=== PATIENT | male | born 1950 | race Caucasian/White ===

== ENCOUNTER 2019-04-12 21:59 | Inpatient (IN) | payer MEDICARE ==
[2019-04-12] MEDS ORDERED: Lorazepam 2 MG/ML VIAL ONE (22:31)
[2019-04-12] MEDS ORDERED: Aspirin 300 MG Suppository ONE (23:37)
[2019-04-13] MEDS ORDERED: Ondansetron ODT 4 MG TAB PO PRN (01:25)
[2019-04-13] MEDS ORDERED: Acetaminophen 325 MG TAB PO PRN (01:25)
[2019-04-13] MEDS ORDERED: Bisacodyl 5 MG TAB PO PRN (01:25)
[2019-04-13] MEDS ORDERED: Dextrose 5% in Water 1,000 ML IV PRN (03:16)
[2019-04-13] MEDS ORDERED: Dextrose 50% Abboject 50 ML SYRINGE SLOW IVP PRN (03:16)
--- NOTE | 2019-04-13 05:38 | PDOC.HHP ---
Hospitalist HPI - History of Present Illness aphasia/unresponsive History of Present Illness: This is a 68 year old male with past medical history of stroke in the past , diabetes, subarachnoid hemorrhage who had presented to the emergency room after being found unresponsive. Per chart review, patient's son had spoken to the patient on the phone at 3:00 pm. When the son came home he found the patient laying on the ground and was unable to stand, move his right side or speak. Patient' son waited until his mother arrived home with a car to bring the patient to the ER at which point patient was out of the window for TPA. Patient had a CT head at outside hospital that was negative for an acute stroke. NIH score was 35 so patient was transferred here. Patient is currently non-verbal so am unable to obtain further history. ED Course: The patient presented with a blood pressure of 171/97 which increased to 191/ 100. He was given aspirin 300 mg rectally. Patient was also agitated trying to get out of bed and was given one dose of ativan 0.5 mg in the ER. Labs showed a WBC of 16, creatinine of 1.33. Hospitalist ROS - Review of Systems ROS unobtainable: due to mental status Hospitalist History - Past Medical History Cardiac: reports: CAD STUNTMAN: reports: Other (subarachnoid hemorrhage in the past. 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) Other Medical History: Diabetes typ eII - Past Surgical History Other Surgical History: CABG - Family History Other Family History: Unknown - Social History Smoking Status: Unknown if ever smoked Alcohol: reports: None Living Situation: Alone - Exam General Appearance: NAD, awake alert Eye: PERRL, anicteric sclera ENT: normocephalic atraumatic, no oropharyngeal lesions Neck: no JVD Heart: RRR, no murmur, no gallops, no rubs Respiratory: CTAB, no wheezes, no rales, no ronchi Gastrointestinal: soft, non-tender, non-distended, normal bowel sounds Extremities: no cyanosis, no clubbing, no edema Skin: normal turgor, no lesions, no rashes Neurological: cranial nerve grossly intact Neurological - other findings: right sided hemineglect. Aphasic. Moves left side spontaneously Musculoskeletal: normal tone, normal strength, no muscle wasting Psychiatric - other findings: aphasic Hospitalist H&P A/P - Plan Plan: This is a 68 year old male with past medical history of CAD, prior stroke, subarachnoid hemorrhage, TBI in the past, who presented to the ER after being found unresponsive #Acute CVA with right sided weakness/neglect #Uncontrolled hypertension #Acute encephalopathy likely from stroke - CT head was negative. Patient with NIH scale of 35. S/p aspirin 300 mg rectally -neurology consult. Ordered carotid dopplers due to elevated creatinine - MRI brain in the morning. Recheck hemoglobin A1C, TSH - 2DECHO - PT/OT/speech consult - BP 191/101, will keep on the higher side for now, order amlodipine for afternoon #Acute Kidney Injury - creatinine 1.3, baseline was 1.16 - will order UA #Leukocytosis - WBC 16, likely reactive from stroke - check UA - chest xray #Type II diabetes - insulin sliding scale - hold outpatient meds - fingersticks q6 hours - HbA1C 8.1 in 07/2018 DVT prophhylaxis: hold due to high BP Code status: full code for now, unknown
[2019-04-13 05:59] VITALS: BMI 31.1
[2019-04-13 06:01] LABS: #Lymphocytes 0.6 thou/uL (1.20-3.40); #Monocytes 0.6 thou/uL (0.11-0.59); #Neutrophils 16.4 thou/uL (1.40-6.50); %Basophils 0.1 % (0.0-1.0); %Eosinophils 0.1 % (0.0-10.0); %Lymphocytes 3.4 % (21.0-51.0); %Monocytes 3.6 % (0.0-10.0); %Neutrophils 92.7 % (42.0-75.0); Mean Corpuscular HGB CONC 32.2 g/dL (32.0-36.0); Mean Corpuscular Hemoglobin 30.2 pg (27.0-31.0); Mean Corpuscular Volume 93.8 fL (78.0-98.0); Mean Platelet Volume 7.6 fL (7.4-10.4); Platelet Count 313 thou/uL (130-400); RBC Distribution Width 12.2 % (11.5-14.5); Red Blood Cell (RBC) Count 5.28 mill/uL (4.70-6.10); White Blood Cell (WBC) Count 17.7 thou/uL (4.8-10.8)
[2019-04-13 06:20] LABS: Anion Gap 13 mmol/L (10-20); BUN (Urea Nitrogen) 19 mg/dL (8.4-25.7); Calc. Creatinine Clearance 96 mL/min (70-130); Calcium 9.5 mg/dL (7.8-10.44); Carbon Dioxide 24 mmol/L (23-31); Chloride 101 mmol/L (98-107); Estimated GFR-MDRD 69; Glucose 289 mg/dL (80-115); Hemoglobin A1c 10.3 % (4.0-6.0); Potassium 4.3 mmol/L (3.5-5.1); Sodium 134 mmol/L (136-145)
[2019-04-13 06:29] LABS: Bacteria/HPF None Seen HPF (None Seen); Bilirubin Negative (Negative); Blood, Urine Negative (Negative); Clarity Clear (Clear); Glucose, Urine (Dipstick) Greater than 1000 mg/dL (Negative); Leukocyte Negative Leu/uL (Negative); Nitrite Negative (Negative); Protein, Urine (Dipstick) 10 mg/dL (Neg-Trace); RBC/HPF 0-3 HPF (0-3); Squamous Epithelial 0-3 HPF (0-3); Urobilinogen Normal mg/dL (Less than 2); WBC/HPF 0-3 HPF (0-3)
[2019-04-13 06:44] LABS: Urine Culture Reflex No No
[2019-04-13] MEDS ORDERED: Prevnar 13-Val Conj/PF 0.5 ML SYRINGE IM ONE (06:45)
[2019-04-13] MEDS ORDERED: FLU VACC TS2019-20(65YR UP)/PF 180 MCG/0.5 ML SYRINGE IM ONE (06:45)
[2019-04-13 06:47] LABS: Free T4 (Free Thyroxine) 0.87 ng/dL (0.70-1.48); Thyroid Stimulating Hormone 0.7051 uIU/mL (0.35-4.94)
[2019-04-13] MEDS ORDERED: Lorazepam 2 MG/ML VIAL SLOW IVP SCH (07:00)
[2019-04-13] MEDS: HumaLOG 300 UNITS/3 ML VIAL SC PRN ×2 (07:05→12:19)
--- NOTE | 2019-04-13 07:49 | ULT ---
BILATERAL CAROTID DUPLEX ULTRASOUND: HISTORY: Aphasia. Right-sided neglect TECHNIQUE: Grayscale, color-flow and spectral Doppler ultrasound imaging of the extracranial carotid artery syst ems was performed bilaterally. FINDINGS: There is occlusion of the right internal carotid artery proximally. Plaque formation is also seen on the left. The peak systolic velocity in the left ICA measures 309 cm/s with an end-diastolic velocity of 70 cm/s and a systolic ratio of 3.33. Flow in both vertebral arteries remains antegrade. IMPRESSION: 1. Occlusion of the right proximal ICA. 2. Severe (greater than 70%) stenosis of the left ICA
--- NOTE | 2019-04-13 07:51 | RAD ---
Exam: Chest one view HISTORY:Elevated white blood cell count. Comparison: 120 12,004 FINDINGS: Cardiac silhouette:Enlarged cardiac silhouette. There are sternotomy wires. Aorta: Unremarkable Pulmonary vessels: Normal Costophrenic angles: Clear LUNGS: No masses or consolidation. Chronic lung parenchymal changes are noted. Pneumothorax: None Osseous abnormalities: Degenerative changes in the left shoulder IMPRESSION: No acute cardiopulmonary process.
--- NOTE | 2019-04-13 08:41 | MRI ---
BRAIN MRI WITHOUT CONTRAST: HISTORY: Right-sided neglect. Aphasia. Altered mental status. COMPARISON: 06/30/2003. FINDINGS: Calvarial marrow signal intensity: Appropriate T1 signal. Gradient echo sequence: Hemosiderin deposition due to remote insult along the right deep hong matter structures and right periventricular white matter. Brain parenchyma: Encephalomalacia and gliosis due to remote right cerebral insult. Cortical hong-white matter differentiation: Loss of hong-white matter differentiation, scattered thro ughout the left frontal, temporal and parietal cortex. There is associated T2, FLAIR signal hyperintensity as well as restricted diffusion. Multifocal left MCA and ZENON distribution infarct is f avored. Restricted diffusion: Absent Central arterial flow void involving the right internal carotid artery. There is appropriate flow related signal in the intracranial left internal carotid artery. There is decreased but present flow related signal in the right M1 segment. White matter signal intensities:Additional T2 and FLAIR white matter hyperintensities suggesting physical medicine physician penelope small vessel ischemic change. Sinuses: Adequate aeration of the paranasal sinuses and mastoid air cells. IMPRESSION: 1. Multifocal areas of restricted diffusion of left cerebrum compatible with ZENON and MCA distribution infarct. 2. 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 3. Chronic changes involving the right cerebrum due to remote right MCA distribution insult. Transcribed Date/Time: 04/13/2019 9:07 AM
--- NOTE | 2019-04-13 09:52 | PDOC.HOSPP ---
- Subjective Encounter Date: 04/13/19 non-verbal - Objective Vital Signs & Weight: Vital Signs (12 hours) Temp Pulse Resp BP Pulse Ox 04/13/19 07:30 98.4 F 105 H 20 148/84 H 93 L 04/13/19 03:30 97.8 F 102 H 18 146/71 H 94 L 04/13/19 00:56 97.7 F 97 20 169/77 H 95 Weight Weight 230 lb Result Diagrams: 04/13/19 05:51 04/13/19 05:51 Additional Labs: Accuchecks 04/13/19 07:01 POC Glucose 254 H Hospitalist ROS - Medication Medications: Active Medications Generic Name Dose Route Start Last Admin Trade Name Freq PRN Reason Stop Dose Admin Insulin Human Lispro 0 units 04/13/19 03:16 04/13/19 07:05 Humalog SC 4 units .MILD SLIDING SCALE PRN Administration Mild Correctional Scale - Exam General Appearance: NAD Heart: RRR, no murmur, no gallops, no rubs, normal peripheral pulses Respiratory: CTAB, no wheezes, no rales, no ronchi, normal chest expansion, no tachypnea, normal percussion Gastrointestinal: soft, non-distended, normal bowel sounds Extremities: no cyanosis, no clubbing, no edema Skin: normal turgor Musculoskeletal - other findings: Moves right foot spontaneously. No RUE movement noted. Psychiatric: somnolent Psychiatric - other findings: Encephalopathic
--- NOTE | 2019-04-13 09:54 | PDOC.HOSPP ---
- Subjective Encounter Date: 04/13/19 non-verbal - Objective Vital Signs & Weight: Vital Signs (12 hours) Temp Pulse Resp BP Pulse Ox 04/13/19 07:30 98.4 F 105 H 20 148/84 H 93 L 04/13/19 03:30 97.8 F 102 H 18 146/71 H 94 L 04/13/19 00:56 97.7 F 97 20 169/77 H 95 Weight Weight 230 lb Result Diagrams: 04/13/19 05:51 04/13/19 05:51 Additional Labs: Accuchecks 04/13/19 07:01 POC Glucose 254 H Hospitalist ROS - Medication Medications: Active Medications Generic Name Dose Route Start Last Admin Trade Name Freq PRN Reason Stop Dose Admin Insulin Human Lispro 0 units 04/13/19 03:16 04/13/19 07:05 Humalog SC 4 units .MILD SLIDING SCALE PRN Administration Mild Correctional Scale - Exam General Appearance: NAD Heart: RRR, no murmur, no gallops, no rubs, normal peripheral pulses Respiratory: CTAB, no wheezes, no rales, no ronchi, normal chest expansion, no tachypnea, normal percussion Gastrointestinal: soft, non-distended, normal bowel sounds Extremities: no cyanosis, no clubbing, no edema Skin: normal turgor Neurological - other findings: Spont movement RLE. No mvment noted RLE. Psychiatric: somnolent Psychiatric - other findings: Encephalopathic Hosp A/P (1) CVA (cerebral vascular accident) Code(s): I63.9 - CEREBRAL INFARCTION, UNSPECIFIED Status: Acute (2) Acute metabolic encephalopathy Code(s): G93.41 - METABOLIC ENCEPHALOPATHY Status: Acute (3) CAD (coronary artery disease) Code(s): I25.10 - ATHSCL HEART DISEASE OF [place] CORONARY ARTERY W/O ANG PCTRS Status: Acute (4) HTN (hypertension) Code(s): I10 - ESSENTIAL (PRIMARY) HYPERTENSION Status: Acute (5) DONNA (acute kidney injury) Code(s): N17.9 - ACUTE KIDNEY FAILURE, UNSPECIFIED Status: Acute (6) Diabetes mellitus Code(s): E11.9 - TYPE 2 DIABETES MELLITUS WITHOUT COMPLICATIONS Status: Acute (7) Leukocytosis Code(s): D72.829 - ELEVATED WHITE BLOOD CELL COUNT, UNSPECIFIED Status: Acute (8) Carotid stenosis Code(s): I65.29 - OCCLUSION AND STENOSIS OF UNSPECIFIED CAROTID ARTERY Status : Acute - Plan CVA: Several areas of infarct in the left ZENON and MCA distributions. Consistent with embolic cva. Echo pending. Neuro consult. PT/OT/DIRECTOR OF MARKET INTELLIGENCE. Rectal ASA. CAD: Stable. Unable to take po meds. DM: Accuchecks, SSI. Encephalopathy: Secondary to CVA. Leukocytosis: Suspect demargination due to CVA. Continue to monitor. Carotid stenosis. CTA. Possibly CV surg consult.
[2019-04-13] MEDS ORDERED: Aspirin 300 MG Suppository PR SCH (10:00)
[2019-04-13] MEDS ORDERED: Iopamidol-370 76% 500 ML 1 ML ONE (13:59)
[2019-04-13] MEDS: Amlodipine 5 MG TAB PO SCH (14:15)
--- NOTE | 2019-04-13 21:33 | CT ---
CTA OF THE NECK WITH IV CONTRAST AND 3-D REFORMATTED IMAGING. INDICATION: History of stroke and right internal carotid artery occlusion COMPARISON: MR the brain dated 04/13/[address] the brain dated 04/12/2019. Carotid ultrasound from 01/2020 was also reviewed. FINDINGS: Right CCA: Patent. Right ICA: Completely occluded from the level of proximal right ICA through the level of the supracl inoid right ICA. Right Subclavian: Patent. Right Vertebral Artery: Patent. Left CCA: Patent. Left ICA: There is high-grade stenosis, 80-90% luminal caliber narrowing, involving the proximal lef t ICA. The mid to distal left ICA cervical segments are patent. The petrous, precavernous, cavernous and visualized supraclinoid left ICA segment is patent. Left Subclavian: Patent. Left Vertebral Artery: Diminutive with moderate to severe narrowing at its origin. There is complete occlusion of the left vertebral artery just proximal to the basilar artery. Aerodigestive tract: Clear. Parotids/Submandibular/Thyroid glands: Normal. Lymph nodes: No pathologically enlarged lymph nodes. Lung Apices: Clear. Bones: No acute osseous abnormality. There is scattered degenerative and osteoarthritic change prese nt. Incidentals: None. IMPRESSION: 1. High-grade stenosis, 80-90% luminal caliber narrowing, involving the proximal left ICA. 2. Complete occlusion of the right ICA 3. Diminutive left vertebral artery with complete occlusion of the intracranial left vertebral artery , just proximal to its basilar artery confluence.
[2019-04-13] MEDS: Sodium Chloride 0.45% 1,000 ML IV SCH (21:43)
--- NOTE | 2019-04-13 22:14 | CON ---
DATE OF CONSULTATION: 04/13/2019 CONSULTING PHYSICIAN: Hospitalist Service. IMPRESSION: 1. Left MCA stroke, likely secondary to thromboembolic event. 2. 70% left carotid stenosis with symptomatic event. 3. Prior right MCA stroke secondary to right internal carotid occlusion. 4. Diabetes. 5. Subarachnoid hemorrhage. 6. Coronary artery disease. 7. Noncompliance. PLAN: 1. Probable need for PEG tube placement to establish medication pathway. 2. Probable need for carotid endarterectomy in the future. 3. Continue aspirin, Plavix, and statin once GI pathway is established. HISTORY OF PRESENT ILLNESS: Mr. Luis is a 68-year-old gentleman, who lives alone. He has a son, who reports that he has been noncompliant with his medications. Has past history of stroke with some residual left upper extremity weakness. He got around the house independently. Otherwise, he has a distant history of subarachnoid hemorrhage. He presented with aphasia and right-sided weakness. His MRI confirmed areas of ischemia in both the left anterior cerebral and middle cerebral artery territories. His CTA showed 70% left carotid narrowing. His lab work was unremarkable other than blood glucoses in the 200s. PAST HISTORY: As listed above. ALLERGIES: PENICILLIN. SOCIAL HISTORY: No tobacco. FAMILY HISTORY: Noncontributory. REVIEW OF SYSTEMS: Not obtainable due to his aphasia. PHYSICAL EXAMINATION: GENERAL: He is a well-nourished elderly man, lying in bed, in no distress. VITAL SIGNS: Have been stable. He is afebrile. HEENT: Pupils are equal. Conjunctivae are clear. His eyes are deviated to the left. Cranium, normocephalic and atraumatic. NECK: Supple. No lymphadenopathy. EXTREMITIES: No cyanosis, clubbing, or edema. NEUROLOGIC: He appears to be awake. He was totally mute. He does not follow any commands. His face appeared slightly flattened on the right. He had some tone in the right arm, but no purposeful movement. He had some withdrawal response in the right leg to stimulation. Plantar responses were upgoing bilaterally. No other abnormal movements were seen. IMAGING: Reviewed. EKG shows normal sinus rhythm. SUMMARY: This is an unfortunate 68-year-old gentleman with bilateral infarcts with carotid disease. He will likely need a PEG tube place given the density of his damage. His son understands the gravity of situation. There is little hope that he will return to a functional level. The decision as to whether endarterectomy is performed is somewhat tenuous given his prognosis. Further evaluation by GI for PEG tube placement will be needed. Vascular Surgery consult would be appropriate as well. Job ID: [id number]
[2019-04-14 05:09] LABS: Cardiac Risk 4.2 (Less than 4.5)
[2019-04-14] MEDS: HumaLOG 300 UNITS/3 ML VIAL SC PRN ×2 (06:14→12:34)
--- NOTE | 2019-04-14 09:02 | CON ---
DATE OF CONSULTATION: HISTORY OF PRESENT ILLNESS: This is a 68-year-old gentleman who was admitted to the hospital yesterday after being found down by his son. He was initially seen in the [place] ER where a CT scan of the brain was done and he was then transferred here. Workup here has included a carotid Doppler abnormal on the right and left and a CT angiogram showing a chronic right occlusion, which was actually documented in 2003 and a high-grade stenosis of about 80% to 90% in his left internal carotid artery. MRI shows old right cerebral infarct and fresh multifocal left cerebral infarct. Cardiac echo shows normal left ventricular function. PAST MEDICAL HISTORY: Obtained primarily from the records as the patient is noncommunicative. The patient has a history of hypertension and dyslipidemia. PAST SURGICAL HISTORY: As evidenced by physical exam, previous coronary artery bypass grafting or at least median sternotomy with cardiac surgery. SOCIAL HISTORY: The patient is documented to be a smoker. He does not take his medications at home. ALLERGIES: REPORTED TO PENICILLIN. PHYSICAL EXAMINATION: GENERAL: Gentleman looking younger than his stated age of 68 with a recorded height of 6 feet. Weight 230. The patient is lying in bed, head turned to the left. He is able to move his left arm and leg and no visible motion right side. NECK: No carotid bruits. LUNGS: Clear to auscultation anteriorly. CARDIAC: Mild resting tachycardia. No murmurs. EXTREMITIES: He has palpable pedal pulses in both legs and no peripheral edema. ASSESSMENT AND PLAN: The patient is status post sizable left middle cerebral and anterior cerebral artery infarct with aphasia, neglect, and right hemiparesis. He has documented old right carotid artery occlusion and now has a high-grade left internal carotid artery occlusion. He has a patent sizable right vertebral and a diminutive left vertebral. We will need to have further discussions with the family as to how aggressive they would like to be in this situation. The patient likely will need a PEG tube and senior living placement. Consideration can be given to a left carotid endarterectomy after discussion with the family, but this would probably not be done any time in the next 2 to 4 weeks. Job ID: [id number]
[2019-04-14] MEDS: Aspirin 300 MG Suppository PR SCH (09:32)
[2019-04-14] MEDS: Sodium Chloride 0.45% 1,000 ML IV SCH ×2 (10:15→21:36)
--- NOTE | 2019-04-14 11:05 | PDOC.HOSPP ---
- Subjective Encounter Date: 04/14/19 Encounter Time: 07:30 Subjective: Patient seen and examined. No overnight events - Objective Vital Signs & Weight: Vital Signs (12 hours) Temp Pulse Pulse Pulse Resp BP BP 04/14/19 08:44 82 80 143/101 H 155/77 H 04/14/19 07:27 98.2 F 93 16 04/14/19 03:40 98.7 F 79 16 04/13/19 23:20 99.1 F 91 16 BP Pulse Ox 04/14/19 08:44 04/14/19 07:27 95 04/14/19 03:40 153/73 H 94 L 04/13/19 23:20 145/84 H 94 L Weight Admit Weight 230 lb Weight 230 lb I&O: 04/13/19 04/14/19 04/15/19 06:59 06:59 06:59 Intake Total 850 Balance 850 Result Diagrams: 04/13/19 05:51 04/13/19 05:51 Additional Labs: Accuchecks 04/14/19 04/13/19 04/13/19 06:16 23:33 18:12 POC Glucose 206 H 195 H 188 H Radiology Reviewed by me: Yes EKG Reviewed by me: Yes Hospitalist ROS - Review of Systems ROS unobtainable: due to mental status - Medication Medications: Active Medications Generic Name Dose Route Start Last Admin Trade Name Freq PRN Reason Stop Dose Admin Amlodipine Besylate 5 mg 04/13/19 14:00 04/13/19 14:15 Norvasc PO Not Given 1400 SHEBA Aspirin 300 mg 04/14/19 09:00 04/14/19 09:32 Aspirin CA 300 mg DAILY SHEBA Administration Sodium Chloride 1,000 mls @ 75 mls/hr 04/13/19 21:45 04/14/19 10:15 1/2 Normal Saline IV 1,000 mls .[id number] SHEBA Administration Insulin Human Lispro 0 units 04/13/19 03:16 04/14/19 06:14 Humalog SC 3 units .MILD SLIDING SCALE PRN Administration Mild Correctional Scale Sodium Chloride 10 ml 04/14/19 09:00 04/14/19 09:30 Flush - Normal Saline IVF 10 ml Q12HR SHEBA Administration - Exam General Appearance: NAD, awake alert Eye: PERRL, anicteric sclera ENT: normocephalic atraumatic, no oropharyngeal lesions Neck: supple, symmetric, no JVD, no thyromegaly Heart: RRR, no murmur, no gallops, no rubs Respiratory: CTAB, no wheezes, no rales, no ronchi Gastrointestinal: soft, non-tender, non-distended Extremities: no cyanosis, no clubbing Skin: normal turgor, no lesions Neurological: hemiplegia, speech deficit Musculoskeletal: normal tone, normal strength Hosp A/P (1) CVA (cerebral vascular accident) Code(s): I63.9 - CEREBRAL INFARCTION, UNSPECIFIED Status: Acute Qualifiers: Precerebral and cerebral artery: anterior cerebral artery Laterality of affected vessel: left (2) Carotid stenosis Code(s): I65.29 - OCCLUSION AND STENOSIS OF UNSPECIFIED CAROTID ARTERY Status : Acute Qualifiers: Laterality: bilateral Qualified Code(s): I65.23 - Occlusion and stenosis of bilateral carotid arteries (3) Oropharyngeal dysphagia Code(s): R13.12 - DYSPHAGIA, OROPHARYNGEAL PHASE Status: Acute (4) Obesity (BMI 30.0-34.9) Code(s): E66.9 - OBESITY, UNSPECIFIED Status: Chronic (5) CAD (coronary artery disease) Code(s): I25.10 - ATHSCL HEART DISEASE OF [place] CORONARY ARTERY W/O ANG PCTRS Status: Chronic (6) Diabetes mellitus Code(s): E11.9 - TYPE 2 DIABETES MELLITUS WITHOUT COMPLICATIONS Status: Chronic Qualifiers: Diabetes mellitus type: type 2 Diabetes mellitus complication status: with circulatory complication (7) HTN (hypertension) Code(s): I10 - ESSENTIAL (PRIMARY) HYPERTENSION Status: Chronic Qualifiers: Hypertension type: essential hypertension Qualified Code(s): I10 - Essential (primary) hypertension - Plan old records reviewed/req, plan discussed w/ family, PT/OT, pediatric social worker, speech therapy, DVT proph w/lovenox 04/14/19 today speech to evaluate, he may need modified MBS if needed seems like he may need peg continue post stroke treatment with stroke team
[2019-04-14] MEDS ORDERED: Enoxaparin Sodium 40 MG/0.4 ML SYRINGE SC SCH (12:15)
[2019-04-14] MEDS: Amlodipine 5 MG TAB PO SCH (13:53)
[2019-04-15] MEDS ORDERED: Calcium Carbonate 500 MG ChewTAB PO PRN (07:42)
[2019-04-15] MEDS ORDERED: Ondansetron PF 4 MG/2 ML Vial IVP PRN (07:42)
[2019-04-15] MEDS ORDERED: Artificial Tears 18 DROP/0.9 ML EA EYE PRN (07:42)
[2019-04-15] MEDS ORDERED: Diabetic Tussin 200 MG/10 ML UDCUP PO PRN (07:42)
[2019-04-15] MEDS ORDERED: Acetaminophen 325 MG TAB PO PRN (07:42)
[2019-04-15] MEDS ORDERED: Bisacodyl 10 MG SUPP PR PRN (07:42)
[2019-04-15] MEDS ORDERED: Sodium Chloride 0.65% Nasal 44 ML BOT EA NARE PRN (07:42)
[2019-04-15] MEDS ORDERED: Loratadine 10 MG TAB PO PRN (07:42)
[2019-04-15] MEDS ORDERED: hydrALAZINE 20 MG/ML VIAL SLOW IVP PRN (07:42)
[2019-04-15] MEDS ORDERED: Acetaminophen 650 MG Suppository PR PRN (07:42)
[2019-04-15] MEDS ORDERED: Cepastat Lozenges 1 LOZ PO PRN (07:42)
[2019-04-15] MEDS: Enoxaparin Sodium 40 MG/0.4 ML SYRINGE SC SCH (09:10)
[2019-04-15] MEDS: Aspirin 300 MG Suppository PR SCH (09:10)
[2019-04-15] MEDS: Sodium Chloride 0.45% 1,000 ML IV SCH (12:36)
[2019-04-15] MEDS: HumaLOG 300 UNITS/3 ML VIAL SC PRN ×2 (12:44→18:40)
--- NOTE | 2019-04-15 13:05 | PDOC.HOSPP ---
- Subjective Encounter Date: 04/15/19 Encounter Time: 07:45 Subjective: Patient seen and examined. No new complaints. No overnight events - Objective Vital Signs & Weight: Vital Signs (12 hours) Temp Pulse Pulse Resp BP BP BP 04/15/19 11:50 98.5 F 74 17 146/79 H 04/15/19 09:06 04/15/19 08:40 67 111/68 141/77 H 04/15/19 08:00 98.4 F 78 18 135/71 04/15/19 04:00 98.6 F 80 16 146/71 H Pulse Ox 04/15/19 11:50 93 L 04/15/19 09:06 94 L 04/15/19 08:40 04/15/19 08:00 94 L 04/15/19 04:00 95 Weight Admit Weight 230 lb Weight 230 lb I&O: 04/14/19 04/15/19 04/16/19 06:59 06:59 06:59 Intake Total 850 1850 Balance 850 1850 Result Diagrams: 04/13/19 05:51 04/13/19 05:51 Additional Labs: Accuchecks 04/15/19 04/15/19 04/15/19 12:24 05:54 01:00 POC Glucose 168 H 151 H 160 H 04/14/19 18:47 POC Glucose 153 H Hospitalist ROS - Review of Systems ROS unobtainable: due to mental status - Medication Medications: Active Medications Generic Name Dose Route Start Last Admin Trade Name Freq PRN Reason Stop Dose Admin Amlodipine Besylate 5 mg 04/13/19 14:00 04/14/19 13:53 Norvasc PO 5 mg 1400 SHEBA Administration Aspirin 300 mg 04/14/19 09:00 04/15/19 09:10 Aspirin ID 300 mg DAILY SHEBA Administration Bisacodyl 10 mg 04/13/19 01:25 04/15/19 09:10 Dulcolax PO 10 mg DAILYPRN PRN Administration Constipation Enoxaparin Sodium 40 mg 04/15/19 09:00 04/15/19 09:10 Lovenox SC 40 mg 0900 SHEBA Administration Sodium Chloride 1,000 mls @ 75 mls/hr 04/13/19 21:45 04/15/19 12:36 1/2 Normal Saline IV 1,000 mls .[id number] SHEBA Administration Insulin Human Lispro 0 units 04/13/19 03:16 04/15/19 12:44 Humalog SC 2 units .MILD SLIDING SCALE PRN Administration Mild Correctional Scale Sodium Chloride 10 ml 04/14/19 09:00 04/15/19 09:11 Flush - Normal Saline IVF 10 ml Q12HR SHEBA Administration - Exam General Appearance: NAD, awake alert Eye: PERRL, anicteric sclera ENT: normocephalic atraumatic, no oropharyngeal lesions Neck: supple, symmetric, no JVD Heart: RRR, no murmur, no gallops, no rubs Respiratory: CTAB, no wheezes, no rales, no ronchi Gastrointestinal: soft, non-tender, non-distended, normal bowel sounds Extremities: no cyanosis, no clubbing, no edema Skin: normal turgor, no lesions Neurological: hemiplegia, speech deficit Musculoskeletal: normal tone, normal strength Psychiatric: normal affect, normal behavior Hosp A/P (1) CVA (cerebral vascular accident) Code(s): I63.9 - CEREBRAL INFARCTION, UNSPECIFIED Status: Acute Qualifiers: Precerebral and cerebral artery: anterior cerebral artery Laterality of affected vessel: left (2) Carotid stenosis Code(s): I65.29 - OCCLUSION AND STENOSIS OF UNSPECIFIED CAROTID ARTERY Status : Acute Qualifiers: Laterality: bilateral Qualified Code(s): I65.23 - Occlusion and stenosis of bilateral carotid arteries (3) Oropharyngeal dysphagia Code(s): R13.12 - DYSPHAGIA, OROPHARYNGEAL PHASE Status: Acute (4) Obesity (BMI 30.0-34.9) Code(s): E66.9 - OBESITY, UNSPECIFIED Status: Chronic (5) CAD (coronary artery disease) Code(s): I25.10 - ATHSCL HEART DISEASE OF [place] CORONARY ARTERY W/O ANG PCTRS Status: Chronic (6) Diabetes mellitus Code(s): E11.9 - TYPE 2 DIABETES MELLITUS WITHOUT COMPLICATIONS Status: Chronic Qualifiers: Diabetes mellitus type: type 2 Diabetes mellitus complication status: with circulatory complication (7) HTN (hypertension) Code(s): I10 - ESSENTIAL (PRIMARY) HYPERTENSION Status: Chronic Qualifiers: Hypertension type: essential hypertension Qualified Code(s): I10 - Essential (primary) hypertension - Plan old records reviewed/req, PT/OT, speech therapy 04/14/19 today speech to evaluate, he may need modified MBS if needed seems like he may need peg continue post stroke treatment with stroke team 04/15/19 today MBS if still NPO start tube feeding [facility]
--- NOTE | 2019-04-15 15:19 | RAD ---
EXAM: XR Ba Swallow W/Speech Therap PROVIDED CLINICAL HISTORY: Dysphagia following cerebral infarction. Feeding difficulties. COMPARISON: None. Fluoroscopy: Total time-1.6 minutes Dose-0.764Gycentimeter squared FINDINGS: This examination was performed in conjunction with speech pathology. Varying consistencies of barium were administered during the exam. The patient does demonstrate premature spill of contrast into the vallecula and piriform sinuses prior to initiation of the swallowing mechanism with multiple cons istencies. The patient did demonstrate evidence of aspiration with thin liquid barium by straw. No definite additional episodes of aspiration were noted during the study. The patient was administered a 12.5 mm barium tablet during the exam, but the patient chewed the tablet and did not swallow the tablet whole. IMPRESSION: Episode of aspiration with thin liquid barium.
[2019-04-15] MEDS: Amlodipine 5 MG TAB PO SCH (15:32)
[2019-04-15] MEDS ORDERED: Atorvastatin Calcium 40 MG TAB PO SCH (21:00)
[2019-04-16 05:04] LABS: #Basophils 0.1 thou/uL (0.0-0.2); #Eosinphils 0.2 thou/uL (0.0-0.7); #Lymphocytes 1.9 thou/uL (1.20-3.40); #Neutrophils 7.8 thou/uL (1.40-6.50); %Basophils 0.8 % (0.0-1.0); %Eosinophils 1.5 % (0.0-10.0); %Lymphocytes 17.3 % (21.0-51.0); %Monocytes 9.2 % (0.0-10.0); %Neutrophils 71.2 % (42.0-75.0); Hemoglobin 17.2 g/dL (14.0-18.0); Mean Corpuscular HGB CONC 33.6 g/dL (32.0-36.0); Mean Corpuscular Hemoglobin 31.4 pg (27.0-31.0); Mean Corpuscular Volume 93.4 fL (78.0-98.0); Mean Platelet Volume 7.4 fL (7.4-10.4); Platelet Count 289 thou/uL (130-400); Red Blood Cell (RBC) Count 5.49 mill/uL (4.70-6.10)
[2019-04-16] MEDS: Sodium Chloride 0.45% 1,000 ML IV SCH (05:20)
[2019-04-16 05:26] LABS: ALT (SGPT) 20 U/L (8-55); AST (SGOT) 22 U/L (5-34); Albumin 3.7 g/dL (3.4-4.8); Alkaline Phosphatase 57 U/L (40-110); Anion Gap 12 mmol/L (10-20); BUN (Urea Nitrogen) 14 mg/dL (8.4-25.7); Bilirubin, Total 0.9 mg/dL (0.2-1.2); Calc. Creatinine Clearance 115 mL/min (70-130); Calcium 8.6 mg/dL (7.8-10.44); Carbon Dioxide 24 mmol/L (23-31); Chloride 104 mmol/L (98-107); Estimated GFR-MDRD 86; Globulin 2.7 g/dL (2.4-3.5); Glucose 157 mg/dL (80-115); Potassium 3.6 mmol/L (3.5-5.1); Protein, Total 6.4 g/dL (5.8-8.1); Sodium 136 mmol/L (136-145)
[2019-04-16 08:51] VITALS: TEMP 97.9
[2019-04-16] MEDS ORDERED: Aspirin 325 MG TAB PO SCH (09:00)
[2019-04-16] MEDS: Enoxaparin Sodium 40 MG/0.4 ML SYRINGE SC SCH (09:01)
--- NOTE | 2019-04-16 10:55 | PDOC.HOSPP ---
- Subjective Encounter Date: 04/16/19 Encounter Time: 07:40 Subjective: Patient seen and examined. No new complaints. No overnight events - Objective Vital Signs & Weight: Vital Signs (12 hours) Temp Pulse Resp BP Pulse Ox 04/16/19 08:00 97.9 F 69 13 134/69 93 L 04/16/19 05:21 98.5 F 75 17 135/74 96 04/16/19 00:00 98.1 F 71 16 143/79 H 92 L Weight Admit Weight 230 lb Weight 230 lb I&O: 04/15/19 04/16/19 04/17/19 06:59 06:59 06:59 Intake Total 1849 1939 Balance 1849 1939 Result Diagrams: 04/16/19 04:37 04/16/19 04:36 Additional Labs: Accuchecks 04/16/19 04/16/19 04/15/19 06:21 03:14 18:38 POC Glucose 145 H 156 H 188 H 04/15/19 12:24 POC Glucose 168 H Hospitalist ROS - Review of Systems ENT: denies: ear pain, ear discharge, nose pain, nose discharge, nose congestion , mouth pain, mouth swelling, throat pain, throat swelling, other Respiratory: denies: cough, dry, shortness of breath, hemoptysis, SOB with excertion, pleuritic pain, sputum, wheezing, other Cardiovascular: denies: chest pain, palpitations, orthopnea, paroxysmal noc. dyspnea, edema, light headedness, other Gastrointestinal: denies: nausea, vomiting, abdominal pain, diarrhea, constipation, melena, hematochezia, other Genitourinary: denies: dysuria, frequency, incontinence, hematuria, retention, other Musculoskeletal: denies: neck pain, shoulder pain, arm pain, back pain, hand pain, leg pain, foot pain, other - Medication Medications: Active Medications Generic Name Dose Route Start Last Admin Trade Name Freq PRN Reason Stop Dose Admin Amlodipine Besylate 5 mg 04/13/19 14:00 04/15/19 15:32 Norvasc PO 5 mg 1400 SHEBA Administration Aspirin 325 mg 04/16/19 09:00 04/16/19 09:01 Aspirin PO 325 mg DAILY SHEBA Administration Atorvastatin Calcium 40 mg 04/15/19 21:00 04/15/19 20:20 Lipitor PO 40 mg HS SHEBA Administration Bisacodyl 10 mg 04/13/19 01:25 04/15/19 09:10 Dulcolax PO 10 mg DAILYPRN PRN Administration Constipation Enoxaparin Sodium 40 mg 04/15/19 09:00 04/16/19 09:01 Lovenox SC 40 mg 0900 SHEBA Administration Insulin Human Lispro 0 units 04/13/19 03:16 04/15/19 18:40 Humalog SC 2 units .MILD SLIDING SCALE PRN Administration Mild Correctional Scale Sodium Chloride 10 ml 04/14/19 09:00 04/16/19 09:01 Flush - Normal Saline IVF 10 ml Q12HR SHEBA Administration - Exam General Appearance: NAD, awake alert Eye: PERRL, anicteric sclera ENT: normocephalic atraumatic, no oropharyngeal lesions Neck: supple, symmetric, no JVD Heart: RRR, no murmur, no gallops, no rubs Respiratory: CTAB, no wheezes, no rales, no ronchi, normal chest expansion, no tachypnea, normal percussion Gastrointestinal: soft, non-tender, non-distended, normal bowel sounds, no palpable masses Extremities: no cyanosis, no clubbing, no edema Skin: normal turgor, no lesions Neurological: no focal deficits Musculoskeletal: normal tone, normal strength Psychiatric: normal affect, normal behavior Hosp A/P (1) CVA (cerebral vascular accident) Code(s): I63.9 - CEREBRAL INFARCTION, UNSPECIFIED Status: Acute Qualifiers: Precerebral and cerebral artery: anterior cerebral artery Laterality of affected vessel: left (2) Carotid stenosis Code(s): I65.29 - OCCLUSION AND STENOSIS OF UNSPECIFIED CAROTID ARTERY Status : Acute Qualifiers: Laterality: bilateral Qualified Code(s): I65.23 - Occlusion and stenosis of bilateral carotid arteries (3) Oropharyngeal dysphagia Code(s): R13.12 - DYSPHAGIA, OROPHARYNGEAL PHASE Status: Acute (4) Obesity (BMI 30.0-34.9) Code(s): E66.9 - OBESITY, UNSPECIFIED Status: Chronic (5) CAD (coronary artery disease) Code(s): I25.10 - ATHSCL HEART DISEASE OF [place] CORONARY ARTERY W/O ANG PCTRS Status: Chronic (6) Diabetes mellitus Code(s): E11.9 - TYPE 2 DIABETES MELLITUS WITHOUT COMPLICATIONS Status: Chronic Qualifiers: Diabetes mellitus type: type 2 Diabetes mellitus complication status: with circulatory complication (7) HTN (hypertension) Code(s): I10 - ESSENTIAL (PRIMARY) HYPERTENSION Status: Chronic Qualifiers: Hypertension type: essential hypertension Qualified Code(s): I10 - Essential (primary) hypertension - Plan old records reviewed/req 04/14/19 today speech to evaluate, he may need modified MBS if needed seems like he may need peg continue post stroke treatment with stroke team 04/15/19 today MBS if still NPO start tube feeding and insert martinez stroke team 04/16/19 see discharge curtis
--- NOTE | 2019-04-16 12:22 | DIS ---
DATE OF ADMISSION: 04/13/2019 DATE OF DISCHARGE: 04/16/2019 PRIMARY CARE PHYSICIAN: Dr. Jeremy Womack. DISCHARGE DISPOSITION: [facility] home. PRIMARY DISCHARGE DIAGNOSES: 1. Cerebrovascular accident. 2. Metabolic encephalopathy. 3. Acute kidney injury. 4. Bilateral carotid stenosis. 5. Oropharyngeal dysphagia, on modified diet. SECONDARY DISCHARGE DIAGNOSES: 1. Obesity with BMI 31. 2. Hypertension. 3. Diabetes, type 2. 4. Coronary artery disease. PRIMARY PROCEDURE/OPERATION: None. RADIOLOGICAL INVESTIGATION: Chest x-ray, carotid Doppler study showed occluded right proximal ICA and severe stenosis of left ICA. CT angiography also confirmed similar finding. Echocardiography showed EF 55% to 60%, modified barium swallows with speech therapy. SIGNIFICANT LABORATORY DATA: WBC 11.0, hemoglobin 17.2, platelet 289. BMP, normal. LFT, normal. DISCHARGE MEDICATIONS: 1. Amlodipine 5 mg p.o. daily. 2. Aspirin 325 mg daily. 3. Lipitor 40 mg p.o. at bedtime. 4. Pepcid 20 mg p.o. b.i.d. 5. Humalog insulin as per sliding scale. CONTRAINDICATION: None. CODE STATUS: Full code. INPATIENT CONSULTANTS: Dr. Marcial. Neurology was following while in the hospital. Dr. Gold was consulted for carotid stenosis. TEST RESULTS PENDING ON DISCHARGE: None. ALLERGIES: PENICILLIN. DISCHARGE PLAN: Posthospital, the patient is planned for discharge to rehab for more PT/OT and speech therapy. The patient will follow up with Neurology and Dr. Gold as instructed. HOSPITAL COURSE: A 68-year-old male who was admitted by Dr. Sophie Larson. Please see her H and P for further details. The patient was having stroke symptoms with neglect right-sided weakness, aphasia, and oropharyngeal dysphagia. Initial chest x-ray was unremarkable. Carotid Doppler study showed bilateral carotid stenosis. CT angiography showed complete occlusion of the right side and left side almost 70% to 80% stenosis. MRI confirmed multifocal areas of restricted diffusion on left cerebrum compatible with an ZENON and MCA distribution infarct. The patient was evaluated by Stroke Team. The patient required modified diet based on his swallow evaluation. The patient will need surgery for his carotid after discharge. The patient was approved for [facility] home for rehabilitation for PT/OT. Overall, the patient is medically stable for discharge. Mainly, he needs PT, OT, and speech therapy. Paperwork for discharge done and discharge medication reconciliation done. Job ID: [id number]
[2019-04-16 12:25] VITALS: BP 134/73
[2019-04-16] MEDS: HumaLOG 300 UNITS/3 ML VIAL SC PRN (12:50)
[2019-04-16] MEDS: Amlodipine 5 MG TAB PO SCH (13:33)
== END 2019-04-16 15:55 | DRG 64 ==
LOC: ERS 21:59 → 2SE 04-13 00:33
PROVIDERS: ADMIT Internal Medicine; ATTEND Internal Medicine
DX: I63.412 Cerebral infarction due to embolism of left middle cerebral artery (principal); G93.41 Metabolic encephalopathy; R40.2342 Coma scale, best motor response, flexion withdrawal, at arrival to emergency department; R40.2212 Coma scale, best verbal response, none, at arrival to emergency department; N17.9 Acute kidney failure, unspecified; G81.91 Hemiplegia, unspecified affecting right dominant side; I65.23 Occlusion and stenosis of bilateral carotid arteries; R13.12 Dysphagia, oropharyngeal phase; I10 Essential (primary) hypertension; E11.9 Type 2 diabetes mellitus without complications; I25.10 Atherosclerotic heart disease of native coronary artery without angina pectoris; E66.9 Obesity, unspecified; Z68.31 Body mass index [BMI] 31.0-31.9, adult; Z88.0 Allergy status to penicillin; R47.01 Aphasia; Z95.1 Presence of aortocoronary bypass graft; R40.2142 Coma scale, eyes open, spontaneous, at arrival to emergency department; R29.734 NIHSS score 34; Z91.19 Patient's noncompliance with other medical treatment and regimen
CPT/HCPCS: 36415; 36416; 70498; 70551; 71045; 74230; 80048; 80053; 80061; 81001; 83036; 84439; 84443; 85025; 90471; 90670; 93306; 93880; 96374; G0009; J1650; J2060; Q9967

== ENCOUNTER 2019-04-19 14:09 | Emergency (ER) | payer MEDICARE ==
[2019-04-19 15:03] LABS: #Basophils 0.1 thou/uL (0.0-0.2); #Eosinphils 0.1 thou/uL (0.0-0.7); #Neutrophils 10.4 thou/uL (1.40-6.50); %Basophils 0.6 % (0.0-1.0); %Lymphocytes 8.2 % (21.0-51.0); %Monocytes 7.6 % (0.0-10.0); %Neutrophils 82.7 % (42.0-75.0); Hemoglobin 18.2 g/dL (14.0-18.0); Mean Corpuscular HGB CONC 33.6 g/dL (32.0-36.0); Mean Corpuscular Hemoglobin 31.5 pg (27.0-31.0); Mean Corpuscular Volume 93.5 fL (78.0-98.0); Mean Platelet Volume 7.5 fL (7.4-10.4); Platelet Count 298 thou/uL (130-400); RBC Distribution Width 12.1 % (11.5-14.5); Red Blood Cell (RBC) Count 5.79 mill/uL (4.70-6.10); White Blood Cell (WBC) Count 12.6 thou/uL (4.8-10.8)
[2019-04-19 15:15] LABS: ALT (SGPT) 49 U/L (8-55); AST (SGOT) 32 U/L (5-34); Albumin 4.1 g/dL (3.4-4.8); Alkaline Phosphatase 63 U/L (40-110); Anion Gap 14 mmol/L (10-20); BUN (Urea Nitrogen) 17 mg/dL (8.4-25.7); Calc. Creatinine Clearance 0 mL/min (70-130); Calcium 9.1 mg/dL (7.8-10.44); Carbon Dioxide 24 mmol/L (23-31); Chloride 102 mmol/L (98-107); Estimated GFR-MDRD 62; Globulin 2.9 g/dL (2.4-3.5); Glucose 218 mg/dL (80-115); Potassium 4.3 mmol/L (3.5-5.1); Sodium 136 mmol/L (136-145)
--- NOTE | 2019-04-19 15:20 | RAD ---
CHEST 1 VIEW: Date: 04/19/2019 HISTORY: Witnessed fall, injury, trauma. FINDINGS: Postop midline sternotomy. Left shoulder joint arthrosis with several large areas of ossification, ev idence for synovial osteochondromas. No confluent pneumonia, overt edema, or pleural effusion. No pne umothorax. IMPRESSION: Cardiomegaly without other significant acute intrathoracic disease. 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 POS: [facility]
--- NOTE | 2019-04-19 15:23 | CT ---
CT Brain WO Con HISTORY: Head injury. COMPARISON: 04/12/2019 study.. FINDINGS: There is generalized ventricular and sulcal prominence. Encephalomalacia change related to an old right middle cerebral artery infarct are stable. There is been development of new areas of decreased attenuation in the left frontal lobe along the hong-white matter junction and a new area ov er the left parietal lobe as well as a new foci in the left posterior frontal parietal occipital junction region as well as an area within the left external capsule and along the anterior limb of th e internal capsule and anterior aspect of the left caudate nucleus. There is no evidence of hemorrhage or mass effect. IMPRESSION: 1. Old right MCA infarct changes, stable. 2. New foci of decreased attenuation over the left cerebral hemisphere as described above suspicious for an acute to subacute areas of infarct. No hemorrhage or mass effect. 3. Findings telephoned to Dr. Avitia at 1520 hours.
== END 2019-04-19 16:40 | disposition home or self-care (01) ==
LOC: ERS 14:09
DX: S00.93XA Contusion of unspecified part of head, initial encounter (principal); S00.211A Abrasion of right eyelid and periocular area, initial encounter; I10 Essential (primary) hypertension; E11.9 Type 2 diabetes mellitus without complications; E66.9 Obesity, unspecified; I25.10 Atherosclerotic heart disease of native coronary artery without angina pectoris; Z86.73 Personal history of transient ischemic attack (TIA), and cerebral infarction without residual deficits; Z79.82 Long term (current) use of aspirin; Z79.899 Other long term (current) drug therapy; W19.XXXA Unspecified fall, initial encounter; Y92.129 Unspecified place in nursing home as the place of occurrence of the external cause
CPT/HCPCS: 36415; 70450; 71045; 80053; 85025; 93005